=== PATIENT | female | born 1980 | race Caucasian/White ===

== ENCOUNTER 2017-05-12 21:11 | Emergency (ER) | payer MEDICAID, OTHER ==
[~2017-05-12] VITALS: Ht 160 cm; Wt 54.5 kg
[~2017-05-12 21:11] MED LIST: ACYC200C2 PO; CEPH500C PO; CYCL-319 PO; DIAZ2TAB3 PO; DICL75TA2 PO; FLUT9.9S NASAL; NAPR-260 PO; NITR-58 PO; ONDA4TAB8 PO; PSEU30TA38 PO
[2017-05-12 21:13] VITALS: Ht 160 cm; Wt 54.5 kg
--- NOTE | 2017-05-12 22:24 | ERD ---
ER Documentation Chief Complaint Date/Time DATE: 05/12/17 TIME: 22:00 Chief Complaint right thumb injury hit while closing car door HPI 37-year-old female who presents emergency department for right thumb pain/ injury. Stated that the right finger was caught while she was closing her car door. This happened at 25 minutes prior to arrival here in the emergency department. Denies headache, dizziness, blurred vision, neck pain, shoulder pain, chest pain , back pain, abdominal pain, nausea, vomiting, numbness or tingling sensation, fever, chills. Allergies to amoxicillin/penicillin/tetracycline. No past medical history. Surgical history of . Denies smoking cigarettes, use of alcohol, use of illegal drugs. ROS All systems reviewed and are negative except as per history of present illness. Medications Home Meds Active Scripts Ibuprofen* (Motrin*) 800 Mg Tab, 800 MG PO Q8 Y for PAIN AND OR ELEVATED TEMP, # 30 TAB Prov:HALEIGH CHACON 05/13/17 Diazepam* (Diazepam*) 2 Mg Tablet, 2 MG PO Q8, #10 TAB Prov:YASIR BROWN PA-C 08/24/16 Diclofenac Sodium* (Diclofenac Sodium*) 75 Mg Tablet.dr, 75 MG PO BID for 10 Days, #20 TAB Prov:YASIR BROWN PA-C 08/24/16 Cyclobenzaprine Hcl* (Cyclobenzaprine Hcl*) 10 Mg Tablet, 10 MG PO TID, #15 TAB Prov:RODRÍGUEZ OSMAN PA-C 08/15/16 Naproxen* (Naprosyn*) 500 Mg Tablet, 500 MG PO BID Y for PAIN AND/OR INFLAMMATION, #30 TAB Prov:RODRÍGUEZ OSMAN PA-C 08/15/16 Nitrofurantoin Monohyd Macrocr* (Macrobid*) 100 Mg Capsr, 100 MG PO BID for 7 Days, CAP Prov:JOURDAN GALLEGO PA-C 05/01/16 Acyclovir* (Acyclovir*) 200 Mg Capsule, 200 MG PO 5 TIMES DAILY for 7 Days, CAP Prov:JOURDAN GALLEGO PA-C 05/01/16 Cephalexin* (Cephalexin*) 500 Mg Capsule, 500 MG PO Q6, #28 CAP Prov:JANUSZ GRANADOC 01/22/16 Ondansetron Hcl* (Zofran*) 4 Mg Tablet, 4 MG PO Q6H Y for NAUSEA AND OR VOMITING , #15 TAB Prov:JANUSZ GRANADO PA-C 01/22/16 Fluticasone Propionate (Flonase Allergy Relief) 9.9 Ml [place].susp, 1 SPRAY NASAL BID, #1 BOTTLE TO EACH NOSTRIL Prov:JANUSZ GRANADO PA-C 01/22/16 Pseudoephedrine Hcl* (Pseudoephedrine Hcl*) 30 Mg Tablet, 30 MG PO Q6 Y for CONGESTION, #30 TAB Prov:JANUSZ GRANADO PA-C 01/22/16 Allergies Allergies: Coded Allergies: tetracycline (Verified Allergy, Intermediate, 08/24/16) amoxicillin (Verified Allergy, Mild, RASH, 05/01/16) ampicillin (Verified Allergy, Mild, 05/01/16) PMhx/Soc History of Surgery: Yes (CS) Anesthesia Reaction: No Hx Neurological Disorder: No Hx Respiratory Disorders: No Hx Cardiac Disorders: No Hx Psychiatric Problems: No Hx Miscellaneous Medical Probl: No Hx Alcohol Use: No Hx Substance Use: No Hx Tobacco Use: No Smoking Status: Never smoker Physical Exam Vitals Vital Signs Date Time Temp Pulse Resp B/P Pulse Ox O2 Delivery O2 Flow Rate FiO2 05/13/17 02:19 82 18 139/86 97 Room Air 05/12/17 21:13 98.4 94 20 152/100 100 Physical Exam Const: [] Head: Atraumatic Eyes: Normal Conjunctiva ENT: Normal External Ears, Nose and Mouth. Neck: Full range of motion..~ No meningismus. Resp: Clear to auscultation bilaterally Cardio: Regular rate and rhythm, no murmurs Abd: Soft, non tender, non distended. Normal bowel sounds Skin: No petechiae or rashes Back: No midline or flank tenderness Ext: No cyanosis, or edema. Metacarpal phalangeal joint of the right thumb is good and full range of motion. Proximal interphalangeal joint of the right thumb has good and full range of motion. No evidence of tendon injury. There is no snuffbox tenderness. Right index/middle/ring/pinky finger has good and full range of motion and is no evidence of tendon injury. Right wrist is unremarkable. Right elbow is unremarkable. Right shoulder is unremarkable.No neurovascular deficits. Neur: Awake and alert Psych: Normal Mood and Affect Results 24 hrs Current Medications Medications (Trade) Dose Ordered Sig/Cooper Route PRN Reason Start Time Stop Time Status Last Admin Dose Admin Ibuprofen (Motrin) 800 mg ONCE ONCE PO 05/12/17 22:30 05/12/17 22:31 DC 05/12/17 22:50 Acetaminophen/ Hydrocodone Bitart ([place] (5/325)) 1 tab ONCE ONCE PO 05/13/17 02:00 05/13/17 02:01 DC 05/13/17 02:01 Diphtheria/ Tetanus/Acell Pertussis (Adacel) 0.5 ml ONCE ONCE IM* 05/13/17 02:30 05/13/17 02:30 DC 05/13/17 02:06 Procedures/MDM Examination: Please see physical examination. Disease process, medical treatment was explained to the patient and family member. They verbalized understanding and agreed with the diagnostic tests, medical treatment, and follow-up care. Radiology: X-ray of the right thumb Impression: Unremarkable right thumb series. Treatment: [place]. Re-evaluation: Metacarpal phalangeal joint of the right thumb is good and full range of motion. Proximal interphalangeal joint of the right thumb has good and full range of motion. No evidence of tendon injury. There is no snuffbox tenderness. Right index/middle/ring/pinky finger has good and full range of motion and is no evidence of tendon injury. Right wrist is unremarkable. Right elbow is unremarkable. Right shoulder is unremarkable. No neurovascular deficits. Consultation: None. Differential diagnosis: Fracture versus contusion versus sprain versus subungual hematoma Medical decision makin-year-old female who presents emergency department for right thumb pain/injury. Stated that the right finger was caught while she was closing her car door. This happened at 25 minutes prior to arrival here in the emergency department. Patient's complaint, patient's history about her complaint, my physical findings, diagnostic test results, my reevaluation after treatment are consistent my final diagnosis of finger contusion/finger sprain. Medications prescribed are the following: Motrin. Patient and family member are made aware of the side effects and adverse reactions of the medications prescribed. Instructed on when to seek emergent and medical attention in case allergic/anaphylactic reactions or severe side effects and or adverse reactions to medications. Patient and family member verbalized understanding. Patient instructed Instructed to follow-up with his PCP in 24-48 hours. Instructed to Call 911 for chest pain, shortness of breath. Advised to come back here in ED as soon as possible for severity of symptoms which includes but not limited to: any new symptoms; shortness of breath/difficulty of breathing; cardiovascular changes; severe gastrointestinal symptoms; signs and symptoms of bleeding and or infection; signs of compartment syndrome/neurovascular changes; neurological changes/deficits. Patient and family member verbalized understanding. Upon discharge, patient is alert and oriented x 4, speaks full and clear sentences, denies pain, has no neurological deficits, has no neurovascular deficits, difficulty of breathing. Breathing even and unlabored. Lung sounds are clear to auscultation. Not in distress. Appears comfortable. Ambulatory with steady gait. Appears satisfied with care provided here in ED. Departure Diagnosis: Primary Impression: Pain of finger Additional Impressions: Finger injury Finger contusion Condition: Stable Additional Instructions: Instructed to follow-up with his PCP in 24-48 hours. Instructed to Call 911 for chest pain, shortness of breath. Advised to come back here in ED as soon as possible for severity of symptoms which includes but not limited to: any new symptoms; shortness of breath/difficulty of breathing; cardiovascular changes; severe gastrointestinal symptoms; signs and symptoms of bleeding and or infection; signs of compartment syndrome/neurovascular changes; neurological changes/deficits. Patient and family member verbalized understanding. HALEIGH CHACON May 12, 2017 22:24
[2017-05-12] MEDS ORDERED: IBUPROFEN 800 MG TAB PO ONE (22:30)
--- NOTE | 2017-05-13 00:31 | RADRPT ---
PROCEDURE: XR finger. CLINICAL INDICATION: Injury with right thumb pain TECHNIQUE: PA, oblique and lateral views of the right thumb were obtained. COMPARISON: None available. FINDINGS: Mineralization is within normal limits. No fracture or osseous lesion is identified. Joint spaces are preserved. Soft tissues are unremarkable. No radiopaque foreign body is present. RPTAT:HJJR IMPRESSION: Unremarkable right thumb series. Physician Leanna Date Time Electronically viewed and signed by Lanre Gregorio Physician on 05/13/2017 00:30 /
[2017-05-13] MEDS ORDERED: IBUP800T25 PO (01:06)
[2017-05-13] MEDS ORDERED: HYDROCODONE/APAP (5/325) TAB PO ONE (02:00)
[2017-05-13 02:19] VITALS: BP 139/86; PULSE 82; RESP 18
[2017-05-13] MEDS ORDERED: DIPHTH/TET/ACEL PERTUSS (ADULT) 0.5 ML VIAL IM* ONE (02:30)
== END 2017-05-13 02:20 | disposition home or self-care (01) ==
LOC: FTE 21:11
DX: S60.011A Contusion of right thumb without damage to nail, initial encounter (principal); W23.0XXA Caught, crushed, jammed, or pinched between moving objects, initial encounter; Y92.810 Car as the place of occurrence of the external cause; Z23 Encounter for immunization
CPT/HCPCS: 73140; 90471; 90715; Z7502; Z7610

== ENCOUNTER 2017-12-28 21:43 | Emergency (ER) | END 2017-12-29 03:58 | disposition home or self-care (01) ==